=== PATIENT | male | born 1965 | race Caucasian/White ===

== ENCOUNTER 2018-11-10 04:46 | Emergency (ER) | payer MEDICAID ==
[~2018-11-10] VITALS: Ht 172.7 cm; Wt 81.6 kg
--- NOTE | 2018-11-10 04:46 | NUR ---
Patient to ER bed 7 to gown for evaluation. Side rails up.
--- NOTE | 2018-11-10 04:47 | NUR ---
PT CAME TO THE ED FOR LOWER ABD PAIN THAT HE HAS HAD FOR YEARS BUT HAS GOTTEN WORSE TONIGHT. PT REPORTS TO HAVE BEEN DIAGNOSED WITH A HERNIA, BUT NEVER HAD IT REPAIRED. PT STATES IT IS A SHARP 10/10 PAIN. PT REPORTS TO BE AN ALCOHOLIC FOR OVER 20 YEARS, HE REPORTED TO HAVE DRANK 2 BEERS TONIGHT. PT REPORTED TO HAVE ALL OVER R SIDE PAIN. DENIES PRIOR MEDICAL HISTORY. NKDA. NO OTHER COMPLAINTS/INJURIES NOTED.
--- NOTE | 2018-11-10 04:50 | NUR ---
ER at bedside examining patient.
[2018-11-10 05:03] VITALS: BP_SYST 115
[2018-11-10] MEDS ORDERED: FOLIC ACID 1 MG, THIAMINE HCL 100 MG, MAGNESIUM SULFATE 1 GM, MVI 10 ML in NACL 0.9% 1,... IV ONE (05:15)
[2018-11-10] MEDS ORDERED: FOLIC ACID 5 MG/ML VIAL IV ONE (05:50)
[2018-11-10] MEDS ORDERED: MAGNESIUM SULFATE 1 GM/2 ML VIAL ONE (05:50)
[2018-11-10] MEDS ORDERED: MVI 10 ML VIAL IV ONE (05:50)
[2018-11-10] MEDS ORDERED: THIAMINE HCL 100 MG/ML VIAL ONE (05:50)
[2018-11-10 05:52] LABS: BASOPHILS % (AUTO) 0.5 % (0.0-2.0); EOSINOPHILS # (AUTO) 0.7 K/uL (0.0-0.4); EOSINOPHILS % (AUTO) 7.2 % (0.0-4.0); HEMATOCRIT 46.8 % (36-54); HEMOGLOBIN 15.4 g/dL (14.0-18.0); LYMPHOCYTES # (AUTO) 3.1 K/uL (1.0-5.5); LYMPHOCYTES % (AUTO) 32.9 % (20.5-51.5); MEAN CORPUSCULAR HEMOGLOBIN 31 pg (27-31); MEAN CORPUSCULAR HGB CONC 33 % (32-36); MEAN CORPUSCULAR VOLUME 94 fL (79.0-98.0); MONOCYTES # (AUTO) 0.5 K/uL (0.0-1.0); MONOCYTES % (AUTO) 5.4 % (1.7-9.3); NEUTROPHILS # (AUTO) 5.2 K/uL (1.8-7.7); PLATELET COUNT (AUTO) 254 K/uL (130-430); RED BLOOD CELL COUNT(AUTO) 4.97 MIL/uL (4.2-6.2); RED CELL DISTRIBUTION WIDTH 12.3 % (9.0-15.0); WHITE BLOOD COUNT (AUTO) 9.5 K/uL (4.8-10.8)
--- NOTE | 2018-11-10 05:58 | NUR ---
Started pt on banana bag per MD order. Tolerated well. Will cont. to monitior.
--- NOTE | 2018-11-10 06:00 | NUR ---
Ordered pt a breakfast tray from dietary
[2018-11-10 06:02] LABS: CALCIUM 8.3 mg/dL (8.4-11.0); CREATININE 0.91 mg/dL (0.55-1.30); POTASSIUM 3.8 mmol/L (3.5-5.1)
[2018-11-10 06:08] LABS: ALBUMIN 3.4 g/dL (3.4-4.8); TOTAL BILIRUBIN 0.2 mg/dL (0.0-1.0)
[2018-11-10 06:20] LABS: CLARITY/URINE CLEAR (CLEAR); COLOR,URINE YELLOW (YELLOW)
[2018-11-10 06:21] LABS: BILIRUBIN,URINE NEGATIVE (NEGATIVE); BLOOD, URINE NEGATIVE (NEGATIVE); GLUCOSE,URINE NEGATIVE (NEGATIVE); KETONES,URINE NEGATIVE (NEGATIVE); LEUKOCYTE ESTERASE ,URINE NEGATIVE (NEGATIVE); NITRITE, URINE NEGATIVE (NEGATIVE); PH,URINE 6.5 (5.0-8.0); PROTEIN URINE NEGATIVE (NEGATIVE); UROBILINOGEN,URINE 0.2 (0.2-1.0)
[2018-11-10 06:25] LABS: BARBITURATE, URINE NEGATIVE (NEG <=200); BENZODIAZEPINE, URINE NEGATIVE (NEG <=150); CANNABINOID, URINE POSITIVE (NEG <=50); COCAINE, URINE NEGATIVE (NEG <=150); METHAMPHETAMINES SCREEN,URINE NEGATIVE (NEG <=500); OPIATE, URINE NEGATIVE (NEG <=100); PHENCYCLIDINE SCREEN,URINE NEGATIVE (NEG <=25); UR TRICYCLIC ANTIDEPRESSANTS NEGATIVE (NEG <=300); URINE AMPHETAMINE NEGATIVE (NEG <=500); URINE METHADONE NEGATIVE (NEG <=200); URINE OXYCODONE SCREEN NEGATIVE (NEG <=100); URINE PROPOXYPHENE SCREEN NEGATIVE (NEG <=300)
--- NOTE | 2018-11-10 07:00 | NUR ---
patient ate 100% of meal and states he feels much better, looking forward to leaving.
--- NOTE | 2018-11-10 07:47 | NUR ---
Patient would like his xwife to pick him up. Patricia at [phone] was called and she is on her way. Dewey was given all resources for shelters/food aviles and web content & social media manager. Dewey is aware of all resources and he states he has winter clothing.
[2018-11-10 08:29] LABS: INR 0.9 (0.80-1.20)
[2018-11-10 08:30] VITALS: BP_SYST 135
== END 2018-11-10 08:25 | disposition home or self-care (01) ==
LOC: SED 04:46
DX: K40.90 Unilateral inguinal hernia, without obstruction or gangrene, not specified as recurrent (principal); F10.10 Alcohol abuse, uncomplicated; Y90.9 Presence of alcohol in blood, level not specified
CPT/HCPCS: 36415; 71045; 80053; 80307; 81003; 83735; 84484; 85025; 85610; 85730; 93005; 96365; 96366; 99284; G0482; J3411; J3475; J3490; J7030